=== PATIENT | female | born 1990 | race African-American/Black ===

== ENCOUNTER 2024-02-27 15:55 | Emergency (ER) | payer OTHER ==
[~2024-02-27] VITALS: Ht 167.6 cm; Wt 59.0 kg
[2024-02-27] MEDS ORDERED: ONDANSETRON HCL/PF 4 MG/2 ML VIAL ONE ×2 (16:42→18:58)
[2024-02-27] MEDS: MORPHINE SULFATE INJ 2 MG/ML DISP.SYRIN IV ONE ×2 (16:43→18:59)
[2024-02-27] MEDS ORDERED: MORPHINE SULFATE INJ 4 MG/ML DISP.SYRIN ONE ×2 (16:43→18:58)
[2024-02-27] MEDS: ONDANSETRON HCL/PF 4 MG/2 ML VIAL IVP ONE (16:43)
[2024-02-27] MEDS: IV NS 0.9% 1,000 ML BAG IV ONE (16:43)
[2024-02-27 17:09] LABS: BASOPHILS % (AUTO) 0.3 % (0.0-2.0); EOSINOPHILS % (AUTO) 0.3 % (0.0-6.0); HEMATOCRIT 30 % (33-45); HEMOGLOBIN 10.1 g/dL (11.5-14.8); LYMPHOCYTES # (AUTO) 1.1 K/uL (0.8-4.8); LYMPHOCYTES % (AUTO) 22.1 % (20.0-44.0); MEAN CORPUSCULAR HEMOGLOBIN 32 PG (26.0-33.0); MEAN CORPUSCULAR HGB CONC 33 g/dl (31.0-36.0); MEAN CORPUSCULAR VOLUME 96 fL (82-100); MONOCYTES # (AUTO) 0.2 K/uL (0.1-1.30); MONOCYTES % (AUTO) 3.7 % (2.0-12.0); NEUTROPHILS # (AUTO) 3.7 K/uL (1.8-8.9); NEUTROPHILS % (AUTO) 73.6 % (43.0-81.0); PLATELET COUNT (AUTO) 218 K/uL (150-450); RED BLOOD CELL COUNT(AUTO) 3.15 MIL/uL (4.0-5.2)
[2024-02-27 17:19] LABS: CALCIUM, SERUM 9.4 mg/dL (8.5-10.1); POTASSIUM 4.7 mmol/L (3.5-5.1)
[2024-02-27 17:25] LABS: ALBUMIN 4.2 g/dL (3.4-5.0); BILIRUBIN,DIRECT 0.1 mg/dL (0.0-0.2); BILIRUBIN,TOTAL 0.6 mg/dL (0.2-1.0); TOTAL PROTEIN, SERUM 8.1 g/dL (6.4-8.2)
[2024-02-27 18:02] LABS: APPEARANCE,URINE CLEAR (CLEAR); BILIRUBIN,URINE 2+ (NEGATIVE); BLOOD, URINE 1+ Ery/uL (NEGATIVE); COLOR,URINE YELLOW (YELLOW); KETONES,URINE NEGATIVE (NEGATIVE); LEUKOCYTE ESTERASE ,URINE TRACE (NEGATIVE); NITRITE, URINE NEGATIVE (NEGATIVE); PROTEIN,URINE NEGATIVE (NEGATIVE); UGLUCOSE NEGATIVE (NEGATIVE)
[2024-02-27 18:03] LABS: PREGNANCY TEST URINE QUAL NEGATIVE (NEGATIVE)
[2024-02-27 18:09] LABS: ADD URINE CULTURE NO; BACTERIA,URINE 1+ /HPF (None Seen); MUCUS,URINE Few /LPF (None Seen); SQUAMOUS EPITHELIAL CELL,UR 21-50 /HPF (None Seen)
[2024-02-27] MEDS: ONDANSETRON HCL/PF - ER 4 MG/2 ML VIAL IV ONE (18:59)
[2024-02-27] MEDS ORDERED: OXYC5CAP18 PO (19:41)
[2024-02-27] MEDS ORDERED: ACET-2605 PO (19:41)
[2024-02-27] MEDS ORDERED: ONDA4TAB11 PO (19:41)
[2024-02-27] MEDS ORDERED: IBUP-1490 PO (19:41)
[2024-02-27 19:52] VITALS: BP 133/68; TEMP 98.4; O2SAT 100
== END 2024-02-27 19:54 | disposition home or self-care (01) ==
LOC: ER 16:03
DX: K85.90 Acute pancreatitis without necrosis or infection, unspecified (principal); M32.14 Glomerular disease in systemic lupus erythematosus; N18.9 Chronic kidney disease, unspecified; Z87.19 Personal history of other diseases of the digestive system; Z88.6 Allergy status to analgesic agent; Z87.448 Personal history of other diseases of urinary system
CPT/HCPCS: 99284; 96374; 96361; 96375; 96376; 85025; 80048; 83690; 80076; 84703; 81001; 36415; J2270 ×2; J2405 ×2; J7030